=== PATIENT | male | born 1945 | race Caucasian/White ===

== ENCOUNTER 2020-01-22 11:11 | Observation (INO) | payer BC, MEDICARE ==
[2020-01-22] MEDS ORDERED: ALPRAZolam 0.25 MG TAB PO PRN (16:41)
[2020-01-22] MEDS ORDERED: ACETAMINOPHEN TAB 500 MG TAB PO PRN (16:41)
[2020-01-22] MEDS ORDERED: HYDROcodone/APAP 5-325MG 1 EACH TAB PO PRN (16:41)
[2020-01-22 17:14] LABS: INR 1.1 (<1.2); Prothrombin Time 11.5 sec (9.0-12.0)
--- NOTE | 2020-01-22 17:14 | XR ---
EXAMINATION TYPE: XR chest 1V portable DATE OF EXAM: 01/22/2020 COMPARISON: NONE HISTORY: Short of breath TECHNIQUE: FINDINGS: There is no heart failure nor confluent pneumonic infiltrate. There are no hilar masses. He art size is normal. There are chest leads. Bony thorax is intact. IMPRESSION: No active cardiopulmonary disease.
[2020-01-22 17:16] LABS: Potassium 3.8 mmol/L (3.5-5.1)
[2020-01-22 17:19] LABS: AST 27 U/L (17-59); African American GFR (CKD) >90 (>60 ml/min/1.73 sqM); Albumin 3.6 g/dL (3.5-5.0); Alkaline Phosphatase 59 U/L (38-126); Anion Gap 6 mmol/L; Blood Urea Nitrogen 27 mg/dL (9-20); Calcium 8.7 mg/dL (8.4-10.2); Carbon Dioxide 23 mmol/L (22-30); Chloride 109 mmol/L (98-107); Glucose 89 mg/dL (74-99); Non-African American GFR(CKD) 78 (>60 ml/min/1.73 sqM); Sodium 138 mmol/L (137-145); Total Bilirubin 0.5 mg/dL (0.2-1.3); Total Protein 5.7 g/dL (6.3-8.2)
[2020-01-22 17:20] LABS: ALT 18 U/L (4-49)
[2020-01-22] MEDS: ASPIRIN 81 MG PO SCH (17:51)
[2020-01-22 18:25] LABS: Appearance,Urine Clear (Clear); Color,Urine Yellow
[2020-01-22 18:26] LABS: Bilirubin,Urine Negative (Negative); Blood,Urine Negative (Negative); Glucose,Urine (UA) Negative (Negative); Ketones,Urine 1+ (Negative); Leukocyte Esterase,Urine Negative (Negative); Nitrite,Urine Negative (Negative); Protein,Urine Negative (Negative); Urobilinogen,Urine <2.0 mg/dL (<2.0)
--- NOTE | 2020-01-22 18:55 | HP ---
HISTORY AND PHYSICAL DATE OF SERVICE: 01/22/2020 CHIEF COMPLAINT: Change in mental status, difficulty speaking. HISTORY OF PRESENT ILLNESS: This 74-year-old gentleman with past medical history of hypothyroidism, history of right ophthalmic shingles, history of DJD, being followed by primary physician in [facility], woke up today. He is a lynn. Yesterday, he was apparently okay. He was mildly confused, unable to remember things and patient came to [facility] and with CT scan was normal and the patient referred to [facility] for further evaluation and treatment. There is no history of fever rigors, headache, loss of consciousness or seizures at this time. PAST MEDICAL HISTORY: Hypothyroidism, DJD, history of recent shingles. MEDICATIONS: [place] thyroid 15 mg p.o. daily, 60 mg p.o. daily. ALLERGIES: None. FAMILY HISTORY: No history of heart disease or strokes in the family. SOCIAL HISTORY: No history of smoking. No history of alcohol intake. REVIEW OF SYSTEMS: ENT: As mentioned earlier. CARDIOVASCULAR: No angina or palpitations. RESPIRATION as mentioned earlier. GI: As mentioned earlier. no dysuria. NERVOUS SYSTEM: As mentioned earlier. ALLERGY/IMMUNOLOGY: No asthma or hayfever. MUSCULOSKELETAL as mentioned earlier. HEMATOLOGY/ONCOLOGY: No history of anemia. ENDOCRINE: No history of diabetes or hypothyroidism. CONSTITUTIONAL: As mentioned earlier. DERMATOLOGY: Negative. RHEUMATOLOGY: Negative. PSYCHIATRY: As mentioned earlier. PHYSICAL EXAMINATION: Alert and oriented times three. Pulse 68, blood pressure 130/77, respirations 18, temperature 97.6, pulse ox 98% on room air., HEENT: Conjunctivae normal. Oral mucosa moist. NECK is no jugular venous distention. No carotid bruit. No lymph node enlargement. Cardiovascular: S1, S2 muffled. No S3, no S4. No murmur. No thrills. RESPIRATIONS: Breath sounds diminished in the bases. No rhonchi. No crackles. ABDOMEN: Soft, nontender. No mass palpable. LEGS: No edema. No swelling. NERVOUS SYSTEM: Higher functions as mentioned earlier. Cranial nerves 2 thru 12 grossly intact. No visual difficulties. No nystagmus. No diplopia. Moves all 4 limbs. Power is normal. No signs of cerebellar dysfunction. Gait is normal. LYMPHATICS: No lymph nodes palpable in the neck, axillae or groin. SKIN: No ulcers. No rashes and no bleeding. JOINTS: No active deforming arthropathy. LABS: From [place] reviewed. ASSESSMENT: 1. Change in mental status and confusion possibly acute metabolic encephalopathy. 2. Rule out acute transient ischemic attack. 3. No evidence of stroke. 4. History of hypothyroidism. 5. History of right ophthalmic herpes zoster. 6. History of degenerative joint disease, left hip. RECOMMENDATIONS AND DISCUSSION: In this 74-year-old gentleman who presented with multiple medical issues, at this time, we will monitor the patient closely. Continue the current medications, and symptomatic treatment. Recommend UA with micro. Portable chest x-ray, complete neurovascular workup and neuro checks and neurology evaluation also. Otherwise, the patient had a basic evaluation. I would also recommend a MRI of the brain also. The prognosis extremely guarded because of multiple complex medical issues. Currently patient has no neurological abnormalities and further recommendations to follow. JACOBOL / IJN: [id number] /
[2020-01-22] MEDS: HEPARIN SODIUM,PORCINE 5,000 UNIT/ML 1 ML VIAL SQ SCH (20:17)
--- NOTE | 2020-01-22 20:34 | US ---
EXAMINATION TYPE: US carotid duplex BILAT DATE OF EXAM: 01/22/2020 COMPARISON: NONE CLINICAL HISTORY: tia???. EXAM MEASUREMENTS: RIGHT: Peak Systolic Velocity (PSV) cm/sec ----- Right CCA: 78.4 ----- Right ICA: 94.4 ----- Right ECA: 106.0 ICA/CCA ratio: 1.2 RIGHT: End Diastole cm/sec ----- Right CCA: 20.2 ----- Right ICA: 28.9 ----- Right ECA: 5.7 LEFT: Peak Systolic Velocity (PSV) cm/sec ----- Left CCA: 84.0 ----- Left ICA: 72.5 ----- Left ECA: 127.9 ICA/CCA ratio: 0.9 LEFT: End Diastole cm/sec ----- Left CCA: 15.4 ----- Left ICA: 30.5 ----- Left ECA: 11.6 VERTEBRALS (direction of flow): Right Vertebral: Antegrade Left Vertebral: Antegrade Rhythm: Normal Moderate amount of plaque visualized in bilateral bulbs. Slightly elevated velocities in the left ECA IMPRESSION: Significant calcified plaque with shadowing. Antegrade flow in the vertebral arteries. Images and measurements suggest less than 50% stenosis in [facility] internal carotid arteries. Criteria for Assigning % of Stenosis / Diameter reduction (Estimation based on the indirect measurements of the internal carotid artery velocities (ICA PSV). 1. Normal (no stenosis)=ICA PSV < 125 cm/s: ratio < 2.0: ICA EDV<40 cm/s. 2. Less than 50% stenosis=ICA PSV < 125 cm/s: ratio < 2.0: ICA EDV<40 cm/s. 3. 50 to 69% stenosis=ICA PSV of 125 to 230 cm/s: ration 2.0 ? 4.0: ICA EDV 40-100 cm/s. 4. Greater than 70% stenosis to near occlusion= ICA PSV > 230 cm/s: ratio > 4.0: ICA EDV > 100 cm/s. 5. Near occlusion= ICA PSV velocities may be low or undetectable: variable ratio and ICA EDV. 6. Total occlusion=unable to detect flow.
[2020-01-23] MEDS: PANTOPRAZOLE 40 MG TABLET PO SCH (06:07)
[2020-01-23 06:42] LABS: Basophils % (A) 1 %; Eosinophils # (A) 0.2 k/uL (0-0.7); Eosinophils % (A) 5 %; HCT 41.4 % (39.0-53.0); HGB 13.5 gm/dL (13.0-17.5); Lymphocytes # (A) 1.2 k/uL (1.0-4.8); Lymphocytes % (A) 24 %; MCH 29.7 pg (25.0-35.0); MCHC 32.5 g/dL (31.0-37.0); MCV 91.3 fL (80.0-100.0); Mean Platelet Volume 7.4; Monocytes # (A) 0.4 k/uL (0-1.0); Monocytes % (A) 7 %; Neutrophils % (A) 61 %; Platelet Count 143 k/uL (150-450); RBC 4.53 m/uL (4.30-5.90); RDW 13.4 % (11.5-15.5); WBC 4.9 k/uL (3.8-10.6)
[2020-01-23 06:58] LABS: African American GFR (CKD) >90 (>60 ml/min/1.73 sqM); Anion Gap 4 mmol/L; Blood Urea Nitrogen 24 mg/dL (9-20); Calcium 8.7 mg/dL (8.4-10.2); Carbon Dioxide 26 mmol/L (22-30); Chloride 109 mmol/L (98-107); Cholesterol 146 mg/dL (<200); Glucose 90 mg/dL (74-99); HDL Cholesterol 48 mg/dL (40-60); LDL Cholesterol,Calculated 79 mg/dL (0-99); Magnesium 1.8 mg/dL (1.6-2.3); Non-African American GFR(CKD) 79 (>60 ml/min/1.73 sqM); Potassium 4.3 mmol/L (3.5-5.1); Sodium 139 mmol/L (137-145); Triglycerides 97 mg/dL (<150)
[2020-01-23] MEDS: HEPARIN SODIUM,PORCINE 5,000 UNIT/ML 1 ML VIAL SQ SCH ×2 (08:35→19:48)
[2020-01-23] MEDS: ASPIRIN 81 MG PO SCH (08:35)
[2020-01-23] MEDS: THYROID, PORK 30 MG TAB PO SCH ×2 (08:36)
--- NOTE | 2020-01-23 16:23 | PN ---
PROGRESS NOTE DATE OF SERVICE: 01/23/2020 This 74-year-old gentleman who was admitted with change in mental status, acute metabolic encephalopathy is being closely monitored to rule out the possibility of TIA. The patient had carotid Doppler less than 50% stenosis. No chest pain. No palpitations. No fever. PHYSICAL EXAMINATION: Alert and oriented times three. Pulse 52, blood pressure 141/81, respiration 16, temperature 97.2, pulse ox 97% on room air. HEENT: Conjunctivae normal. NECK: No JVD. CARDIOVASCULAR: S1, S2 muffled. RESPIRATION: Breath sounds diminished in the bases. No rhonchi. No crackles. ABDOMEN: Soft, nontender. LEGS: No edema NERVOUS SYSTEM: Higher functions as mentioned earlier. Moves all 4 limbs. Cranial nerves 2 thru 12 grossly intact. No focal deficits. LABS: Platelets 143. Other labs are noted. Otherwise, BUN is 24. ASSESSMENT: 1. Change in mental status with confusion, possibly acute metabolic encephalopathy. 2. Rule out acute transient ischemic attack. 3. No evidence of acute stroke. 4. History of hypothyroidism. 5. Mild thrombocytopenia. 6. History of right ophthalmic herpes zoster. 7. History of degenerative joint disease of the left hip. 8. History of prostate disorder. 9. History of hypothyroidism. RECOMMENDATIONS AND DISCUSSION: Recommend to continue current medications, symptomatic treatment and continue with antiplatelet agents. I would add Lipitor to the current regimen and await neurology consultation and neurology evaluation including MRI. Further recommendations to follow. MMODL / IJN: [id number] /
[2020-01-23] MEDS: ATORVASTATIN 10 MG TAB PO SCH (19:48)
[2020-01-24] MEDS: PANTOPRAZOLE 40 MG TABLET PO SCH (06:35)
[2020-01-24] MEDS: ASPIRIN 81 MG PO SCH (07:58)
[2020-01-24] MEDS: HEPARIN SODIUM,PORCINE 5,000 UNIT/ML 1 ML VIAL SQ SCH ×2 (07:58→21:48)
[2020-01-24] MEDS: THYROID, PORK 30 MG TAB PO SCH ×2 (07:58)
--- NOTE | 2020-01-24 13:31 | PN ---
PROGRESS NOTE DATE OF SERVICE: 01/24/2020 This 74 -year-old gentleman admitted with some change in mental status and confusion is being evaluated for metabolic encephalopathy versus TIA. MRI and neurology evaluation in progress. No chest pain. No palpitations. No fever. PHYSICAL EXAMINATION: Alert and oriented times three. Pulse 57. Blood pressure 120/60, respirations 16, temperature 97.8, pulse ox 97% on room air. HEENT: Conjunctivae normal. Oral mucosa moist. NECK is no jugular venous distention. No carotid bruit. No lymph node enlargement. CARDIOVASCULAR: S1, S2 muffled. RESPIRATORY: Breath sounds diminished in the bases. No rhonchi. No crackles. ABDOMEN: Soft, nontender. LEGS are no edema. No swelling. NERVOUS SYSTEM: No focal deficits. LABS: Platelets 143. Other labs are noted. ASSESSMENT: 1. Change in mental status with confusion, possible acute metabolic encephalopathy. 2. Rule out acute transient ischemic attack. 3. No evidence of acute stroke. 4. History of hypothyroidism. 5. Bradycardia. 6. Mild thrombocytopenia. 7. History of right ophthalmic herpes zoster previously. 8. History of degenerative joint disease, left hip. 9. History of prostate disorder. 10.History of hypothyroidism. RECOMMENDATIONS AND DISCUSSION: I recommend to continue current medications, and symptomatic treatment. Neurology evaluation. Continue with antiplatelet agents and Lipitor. Otherwise, I would recommend EKG, TSH and 2D echo, MRI. Neurology consultation. Prognosis guarded. Further recommendations to follow. MMODL / IJN: [id number] /
--- NOTE | 2020-01-24 14:22 | P.CNNES ---
History of Present Illness Consult date: 01/24/20 Requesting physician: Jam Manzanares Reason for Consult: Altered mental status History of Present Illness: Patient is a 74-year-old male, who came to the hospital on 01/22/2028 3:40 PM as a transfer from [facility] for evaluation of altered mental status. Patient states that on Friday he woke up and had no memory. He did not remember waking up or what he did. His noted him that he was disoriented. He did not remember getting dressed, did not remember the month or the date. Patient was noted to repeat the same question over and over. There was no nausea vomiting diarrhea. Patient's had denied any report of head trauma, or alcohol intake or drug use. He does have history of hypothyroidism and takes [place] thyroid. There was no focal weakness, paresthesias convulsions or tremors. No infections. No tinnitus, hearing loss or double vision. Patient arrived to the ER at 10:38 AM. His blood pressure was 111/80, pulse rate 78. Patient underwent computed tomography scan of the head, which was normal. No acute process. Mild diffuse cerebral atrophy. TSH was mildly elevated 5.27 (0 .35-3.74), urine drug screen negative, CMP, CBC, lactate, troponin, magnesium and urinalysis were all normal or negative. Patient was transferred to [facility] and he arrived here on 01/22/2020 at 3:40 PM. Patient states his memory came back before he left [facility]. He remembers being transferred in the ambulance to this hospital. Patient's vital signs on arrival was blood pressure 136/74, pulse rate to see temperature 97.6. Patient underwent Chest x-ray showed no cardiopulmonary disease. Carotid Doppler showed significant calcified plaque with shadowing. Antegrade flow in the vertebral arteries. Images in measurements suggest less than 50% stenosis in both ICAs. Patient's CBC, Chem-20, PT/PTT is normal. MRI of the brain was performed, which was reviewed and appears normal. Telemetry monitoring so far showing sinus rhythm with sinus bradycardia, in 50s. No tachy or julio arrhythmias. 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 The [place] had mentioned that he probably was not acting right on evening, the day prior to arrival as well. Patient denies any history of hypertension, diabetes, tobacco use or alcohol. No previous history of seizures. Review of Systems Denies headache, and his mentation is completely clear. No head trauma. All other 14 point of review of systems completely unremarkable. Past Medical History Past Medical History: Osteoarthritis (OA), Prostate Disorder, Thyroid Disorder Additional Past Medical History / Comment(s): enlarged prostate History of Any Multi-Drug Resistant Organisms: None Reported Additional Past Surgical History / Comment(s): left hip surgery planned in 3 weeks Past Anesthesia/Blood Transfusion Reactions: No Reported Reaction Smoking Status: Never smoker Medications and Allergies Home Medications Medication Instructions Recorded Confirmed Type Thyroid,Pork [[place] Thyroid] 15 mg PO DAILY 01/22/20 01/22/20 History Thyroid,Pork [[place] Thyroid] 60 mg PO DAILY 01/22/20 01/22/20 History Allergies Allergy/AdvReac Type Severity Reaction Status Date / Time No Known Allergies Allergy Verified 01/22/20 18:12 Physical Examination - Vital Signs Vital Signs: Vital Signs Temp Pulse Resp BP Pulse Ox 01/24/20 07:50 97.8 F 57 L 16 123/68 97 01/24/20 04:00 97.9 F 51 L 16 101/61 100 01/23/20 23:19 54 L 16 110/60 98 01/23/20 19:58 98.0 F 55 L 16 132/76 97 01/23/20 16:40 97.5 F L 53 L 16 148/76 97 Intake and Output 01/23/20 01/24/20 01/24/20 22:59 06:59 14:59 Intake Total 236 Output Total 180 Balance -180 236 Intake: Oral 236 Output: Urine 180 Other: Voiding Method Toilet # Voids 4 1 Weight 87 kg On examination patient is an elderly male, very pleasant, in no acute distress. Patient is alert awake oriented to time place and person. Speech and language functions are normal. Attention and concentration fund of knowledge is adequate. On cranial nerve examination pupils are round and reactive to light, visual mitchell are full on confrontation. Extraocular muscles are intact with no nystagmus. Face is symmetric, tongue protrudes the midline. Palatal elevation and sensation normal. Hearing and shoulder shrug normal. On muscle strength testing there is no pronator drift and the strength is normal in arms and legs distally and proximally reflexes are 2+ and plantars are downgoing. There is no ataxia for [id number] testing. Sensory touch is equal with no neglect. T one and bulk of muscles normal. Gait normal. There is no carotid bruit, S1 and S2 audible. Peripheral pulses present. No peripheral edema. Chest is clear, abdominal soft nontender. Results - Laboratory Findings CBC and BMP: 01/25/20 05:53 01/25/20 05:53 Abnormal Lab Findings: Abnormal Labs 01/22/20 01/23/20 01/23/20 16:52 06:08 06:08 Plt Count 143 L Chloride 109 H 109 H BUN 27 H 24 H Total Protein 5.7 L Assessment and Plan Assessment: * Transient global amnesia. Exact cause remains uncertain. Plan: * Patient had an MRI of the brain, which is normal. * Agree with checking 2-D echo to rule out any embolic source. * Carotid Doppler is normal. * EEG to rule out any epileptiform activity. * Agree with starting aspirin 81 mg daily.
[2020-01-24 14:27] LABS: T4, Free (Free Thyroxine) 0.82 ng/dL (0.78-2.19)
--- NOTE | 2020-01-24 14:36 | MR ---
EXAMINATION TYPE: MR brain wo/w con DATE OF EXAM: 01/24/2020 COMPARISON: Outside CT brain 2 days ago. HISTORY: Disorientation TECHNIQUE: Multiplanar, multisequence images of the brain and brainstem is performed without and with IV contras t, utilizing 7.5 mL intravenous Gadavist . FINDINGS: Diffusion weighted images demonstrate no evidence of a recent infarct or other diffusion ab normality. There is no worrisome extra-axial fluid collection. There is mild to moderate diffuse domenica tricular and sulcal prominence. Occasional tiny focus of T2 hyperintensity is seen throughout the whi te matter bilaterally. Less than 5 scattered lesions are seen. Midline structures demonstrate normal morphology. The craniocervical junction appears within normal limits. Post contrast images demonstrate no abnormal enhancement. The dural venous sinuses appear pa tent. Mild to moderate eccentric mucosal thickening inferiorly right maxillary sinus otherwise the pa ranasal sinuses are clear. Globes are intact bilaterally. IMPRESSION: 1. No MRI evidence for a recent infarct. 2. Mild to moderate diffuse cerebral atrophy and minimal chronic small vessel ischemic change. Chroni c right maxillary sinus disease. No suspicious enhancement noted.
[2020-01-24] MEDS: ATORVASTATIN 10 MG TAB PO SCH (21:44)
--- NOTE | 2020-01-24 22:44 | EEG ---
ELECTROENCEPHALOGRAM REPORT DATE OF SERVICE: 01/24/2020 PREAMBLE: This is a 74-year-old male with transient global amnesia. EEG FINDINGS: This is a 21-channel routine EEG recording in a patient utilizing 10-20 international system with referential and bipolar montages. Background consists of well developed, well regulated, moderate-voltage activity in 8-9 hertz alpha. Background is posterior- dominant and reactive to eye opening and closing. Background does not seem to be reactive to photic stimulation. Mild drowsiness was seen with appearance of bilaterally symmetric theta frequency rhythm. Deeper stages of sleep were not seen. No focal or generalized epileptiform activity was seen. IMPRESSION: This is a normal awake and drowsy EEG. No focal lateralized or epileptiform activity was seen. MMODL / IJN: [id number] /
[2020-01-25 05:04] VITALS: RESP 18
[2020-01-25] MEDS: PANTOPRAZOLE 40 MG TABLET PO SCH (06:23)
[2020-01-25 06:37] LABS: Basophils % (A) 1 %; Eosinophils # (A) 0.3 k/uL (0-0.7); Eosinophils % (A) 5 %; HCT 43.2 % (39.0-53.0); HGB 14.3 gm/dL (13.0-17.5); Lymphocytes # (A) 1.3 k/uL (1.0-4.8); Lymphocytes % (A) 25 %; MCHC 33.2 g/dL (31.0-37.0); MCV 90.4 fL (80.0-100.0); Mean Platelet Volume 7.1; Monocytes # (A) 0.4 k/uL (0-1.0); Monocytes % (A) 8 %; Neutrophils % (A) 59 %; Platelet Count 148 k/uL (150-450); RBC 4.77 m/uL (4.30-5.90); RDW 13.2 % (11.5-15.5); WBC 5.2 k/uL (3.8-10.6)
[2020-01-25 06:55] LABS: Calcium 8.7 mg/dL (8.4-10.2); Potassium 4.2 mmol/L (3.5-5.1)
[2020-01-25] MEDS: HEPARIN SODIUM,PORCINE 5,000 UNIT/ML 1 ML VIAL SQ SCH (09:12)
[2020-01-25] MEDS: ASPIRIN 81 MG PO SCH (09:12)
[2020-01-25] MEDS: THYROID, PORK 30 MG TAB PO SCH ×2 (09:13)
[2020-01-25 11:19] VITALS: TEMP 97.9
--- NOTE | 2020-01-25 16:17 | P.PN ---
Subjective Progress Note Date: 01/25/20 Patient states he is feeling "nothing abnormal". Memory back to baseline. Objective - Vital Signs Vital signs: Vital Signs Temp 97.9 F 01/25/20 08:00 Pulse 61 01/25/20 08:00 Resp 18 01/25/20 04:00 BP 110/59 01/25/20 08:00 Pulse Ox 97 01/25/20 08:00 Intake & Output 01/24/20 01/25/20 01/25/20 18:59 06:59 18:59 Intake Total 361 480 118 Balance 361 480 118 Weight 86.6 kg Intake: Oral 361 480 118 Other: Voiding Method Toilet # Voids 2 - Exam Nonfocal. - Labs CBC & Chem 7: 01/25/20 05:53 01/25/20 05:53 Labs: Abnormal Lab Results - Last 24 Hours (Table) 01/25/20 01/25/20 Range/Units 05:53 05:53 Plt Count 148 L (150-450) k/uL BUN 24 H (9-20) mg/dL Assessment and Plan Assessment: * Transient global amnesia. Exact cause remains uncertain. Plan: * MRI of the brain is normal. * 2-D echo revealed normal left-ventricular size, mild concentric LVH, EF is 50- 55%. Right ventricle is mild to moderately large. No obvious embolic source. * Carotid Doppler is normal. * EEG was normal, no epileptiform activity seen. * Telemetry monitoring showing sinus rhythm with some sinus bradycardia. No arrhythmia. * Lipid panel showed cholesterol 146, LDL 79, HDL 48 and triglycerides 97. All normal. * Continue aspirin 81 mg daily. * Clear for discharge from neurology standpoint.
[2020-01-25 16:38] VITALS: BP 104/63; PULSE 64
--- NOTE | 2020-01-25 18:00 | ECHOF ---
Referral Reason:tia??? MEASUREMENTS -------- HEIGHT: 185.4 cm WEIGHT: 86.6 kg BP: 101/61 RVIDd: 3.8 cm (< 3.3) IVSd: 1.3 cm (0.6 - 1.1) LVIDd: 3.6 cm (3.9 - 5.3) LVPWd: 1.2 cm (0.6 - 1.1) IVSs: 1.6 cm LVIDs: 1.8 cm LVPWs: 1.7 cm Ao Diam: 3.4 cm (2.0 - 3.7) AV Cusp: 2.4 cm (1.5 - 2.6) LA Diam: 2.8 cm (2.7 - 3.8) MV EXCURSION: 18.742 mm (> 18.000) MV EF SLOPE: 111 mm/s (70 - 150) EPSS: 0.4 cm MV E Lucho: 0.62 m/s MV DecT: 203 ms MV A Lucho: 0.61 m/s MV E/A Ratio: 1.02 RAP: 5.00 mmHg RVSP: 11.16 mmHg FINDINGS -------- This was a technically difficult study with suboptimal views. The left ventricular size is normal. There is mild concentric left ventricular hypertrophy. Overa ll left ventricular systolic function is low-normal with, an EF between 50 - 55 %. The right ventricle is mild to moderately enlarged. , and the LA measures 2.8cm. The right atrial size is normal. Lumason used Unable to visualize the septum. The aortic valve is trileaflet and appears structurally normal. The mitral valve is normal. There is trace mitral regurgitation. The tricuspid valve appears structurally normal. Trace tricuspid regurgitation present. Right domenica tricular systolic pressure is normal at < 35 mmHg. There is no pulmonic regurgitation present. The aortic root size is normal. There is no pericardial effusion. CONCLUSIONS -------- 1. The left ventricular size is normal. 2. There is mild concentric left ventricular hypertrophy. 3. Overall left ventricular systolic function is low-normal with, an EF between 50 - 55 %. 4. The right ventricle is mild to moderately enlarged. 5. There is trace mitral regurgitation. 6. Trace tricuspid regurgitation present. SENIOR SALES ENGINEER: Lyudmila Kendrick RDCS
[2020-01-26] MEDS ORDERED: THYROID, PORK 30 MG TAB PO SCH ×2 (06:00)
--- NOTE | 2020-01-26 08:19 | P.DS ---
Providers Date of admission: 01/22/20 15:40 Expected date of discharge: 01/25/20 Attending physician: Ifeoma Chowdary Consults: 01/23/20 13:55 Consult Physician Routine Consulting Provider: Sherine Ma Consult Reason/Comments: AMS Do you want consulting provider notified?: Yes Primary care physician: Stated None Hospital Course: Final diagnosis Change in mental status with confusion, possible acute metabolic encephalopathy Rule out transient ischemic attack No evidence of acute stroke History of hypothyroidism Bradycardia Mild thrombocytopenia History of right ophthalmic herpes zoster previously History of degenerative joint disease, left hip History of prostate disorder Discharge disposition Patient is being discharged in a stable condition with guarded prognosis to home. Patient will follow-up with Dr. Randolph out of [place] upon discharge. Patient will continue with aspirin 81 mg along with Lipitor 10 mg. Patient also instructed to follow-up with neurology in the outpatient setting. Total time taken is 35 minutes. History of present illness This is an 74-year-old male who was recently admitted with some change in mental status and confusion and was being closely monitored. Patient was being closely monitored and evaluated for metabolic encephalopathy versus TIA. Patient was seen and evaluated by neurology underwent MRI showing no evidence for recent infarct, mild to moderate diffuse cerebral atrophy and minimal chronic small vessel ischemic change with chronic right maxillary sinus disease. Patient also underwent a carotid Doppler study showing significant calcified plaque with shadowing the measurements suggest less than 50% stenosis in bilateral internal carotid arteries. Patient underwent an EEG showing no epileptiform activity. Patient also underwent an echo showing mild concentric left ventricular hypertrophy with overall left ventricular systolic function is low to normal with an EF between 50 and 55%, the right ventricle being mild to moderately enlarged, and a trace of mitral and tricuspid regurgitation present. Patient will continue on baby aspirin daily along with Lipitor 10 mg in the outpatient setting. Patient instructed to follow up with neurology in the outpatient setting along with his primary care provider. Symptoms have subsided and patient is showing no left or right side focal deficits. Patient would like to go home today. Currently no reports of chest pain, shortness of breath, or palpitations. Patient is afebrile. No reports of nausea or vomiting and patient is tolerating diet. Guarded prognosis. On exam vital signs are stable. Temp is 97.9F, pulse is 61, respirations are 18, blood pressure is 110/59, oxygen saturation is 97% on room air. Cardio S1, S2 are muffled. Respiratory shows diminished breath sounds at the bases with no wheezing or rhonchi noted. Abdomen is soft and nontender. Nervous system shows no focal deficits. Please refer to medication reconciliation sheet for a list of medications. Patient Condition at Discharge: Fair Plan - Discharge Summary Discharge Rx Participant: No New Discharge Prescriptions: New Aspirin 81 mg PO DAILY 30 Days #30 chew Atorvastatin [Lipitor] 10 mg PO HS 30 Days #30 tab Continue Thyroid,Pork [[place] Thyroid] 60 mg PO DAILY Thyroid,Pork [[place] Thyroid] 15 mg PO DAILY Discharge Medication List Thyroid,Pork [[place] Thyroid] 15 mg PO DAILY 01/22/20 [History] Thyroid,Pork [[place] Thyroid] 60 mg PO DAILY 01/22/20 [History] Aspirin 81 mg PO DAILY 30 Days #30 chew 01/25/20 [Rx] Atorvastatin [Lipitor] 10 mg PO HS 30 Days #30 tab 01/25/20 [Rx] Follow up Appointment(s)/Referral(s): Morgan Larsen MD [REFERRING] - 1 Week None,Stated [Primary Care Provider] - 1 Week (Please find and follow up with primary care physicain in 1-2 weeks.) Patient Instructions/Handouts: Altered Mental Status (GEN) Activity/Diet/Wound Care/Special Instructions: Awaiting for echo to be read prior to discharge Activity Limited until follow-up Continue current diet Continue with Lipitor and aspirin daily Prescriptions have been sent to the pharmacy Follow-up with neurology within the next week Follow-up with primary care provider upon discharge Discharge Disposition: HOME SELF-CARE
== END 2020-01-25 18:56 | disposition home or self-care (01) ==
LOC: INTOOBSV 15:40 → 3SCARD 15:40 → UNDODISIN 01-25 18:56
PROVIDERS: ADMIT Internal Medicine; ATTEND Internal Medicine
DX: G45.4 Transient global amnesia (principal); R00.1 Bradycardia, unspecified; D69.6 Thrombocytopenia, unspecified; N40.0 Benign prostatic hyperplasia without lower urinary tract symptoms; E03.9 Hypothyroidism, unspecified; M16.12 Unilateral primary osteoarthritis, left hip; G31.9 Degenerative disease of nervous system, unspecified; I67.82 Cerebral ischemia; J32.0 Chronic maxillary sinusitis; I65.23 Occlusion and stenosis of bilateral carotid arteries; I51.7 Cardiomegaly; Z86.19 Personal history of other infectious and parasitic diseases; Z79.890 Hormone replacement therapy
CPT/HCPCS: 96372 ×4; 95816; 84439; 80061; 80053; 80048 ×2; 84443; 83735; 85025 ×2; 85610; 81003; 71045; 93880; 70553; G0378 ×4; G0379; C8929; J1644 ×4; A9585; Q9950; 93306